=== PATIENT | female | born 1980 | race Hispanic/Latino ===

== ENCOUNTER 2017-07-24 11:01 | Outpatient (CLI) | payer BC ==
[2017-07-24 11:54] LABS: #Lymphocytes 1.4 thou/uL (1.20-3.40); #Monocytes 0.3 thou/uL (0.11-0.59); #Neutrophils 5.9 thou/uL (1.40-6.50); %Basophils 0.4 % (0.0-1.0); %Eosinophils 0.6 % (0.0-10.0); %Lymphocytes 18.1 % (21.0-51.0); %Monocytes 3.9 % (0.0-10.0); Hemoglobin 13.7 g/dL (12.0-16.0); Mean Corpuscular HGB CONC 33.6 g/dL (32.0-36.0); Mean Corpuscular Hemoglobin 32.1 pg (27.0-31.0); Mean Corpuscular Volume 95.7 fl (81.0-99.0); Mean Platelet Volume 8.5 fL (7.4-10.4); Platelet Count 301 thou/uL (130-400); Red Blood Cell (RBC) Count 4.28 mill/uL (4.20-5.40); White Blood Cell (WBC) Count 7.7 thou/uL (4.8-10.8)
[2017-07-24 12:54] LABS: BHCG - Serum Negative (NEGATIVE); Pregs Control Background? CLEAR/WHITE (CLR/WHITE); Pregs Control Bar Appear? YES (CONTROL BAR)
== END 2017-07-24 11:02 | disposition home or self-care (01) ==
LOC: LABBT 11:01
PROVIDERS: ATTEND Surgery
DX: Z01.812 Encounter for preprocedural laboratory examination (principal); K64.4 Residual hemorrhoidal skin tags
CPT/HCPCS: 84703; 85025

== ENCOUNTER 2017-07-28 10:09 | Day surgery (SDC) | payer BC ==
[2017-07-24 11:15] VITALS: BMI 25.6
[2017-07-28] MEDS ORDERED: Scopolamine 1.5 mg/72 hour Patch ONE (11:03)
[2017-07-28] MEDS ORDERED: CEFAZOLIN/Water 2 GM/20 ML SYRINGE ONE (11:03)
[2017-07-28] MEDS ORDERED: Fentanyl 100 MCG/2 ML VIAL ONE (12:18)
[2017-07-28] MEDS ORDERED: Ondansetron HCl/PF 4 MG/2 ML Vial ONE ×3 (12:19→15:58)
[2017-07-28] MEDS ORDERED: Lidocaine 2% 10 ML INJ ONE (12:21)
[2017-07-28] MEDS ORDERED: Bupivacaine/Epinephrine 0.25% 30 ML VIAL ONE (12:21)
[2017-07-28] MEDS ORDERED: Famotidine/PF 20 mg/2ml Vial ONE (12:35)
[2017-07-28] MEDS ORDERED: Bacitracin Zinc Ointment 30 gm TUBE ONE (12:52)
--- NOTE | 2017-07-28 13:09 | OP ---
DATE OF PROCEDURE: 07/28/2017 PREOPERATIVE DIAGNOSIS: Grade 4 hemorrhoidal skin tags. SURGEON: Sherman Ramos M.D. PROCEDURE PERFORMED: Hemorrhoidectomy. INDICATIONS: A 37-year-old female who has this long external hemorrhoidal tag that is causing very m uch difficulty with hygiene, here for excision. FINDINGS: There is about a 3 cm long pedunculated skin tag anterior aspect of the anus with an exter nal hemorrhoidal component. PROCEDURE: After informed consent was obtained, the patient was taken to the operating room and give n general mask anesthesia. She was placed in the lithotomy position. Her perianal region was preppe d and draped in usual fashion. Local anesthesia infiltrated subcutaneously and deep and using electr ocautery it was excised. The skin was closed with interrupted [id number] of 3-0 chromic after hemostasis assured. The patient tolerated the procedure well. Sterile bandage was applied.
[2017-07-28] MEDS ORDERED: PROPOFOL 200 MG/20 ML VIAL ONE (15:58)
[2017-07-28] MEDS ORDERED: Dexamethasone 20 MG/5 ML VIAL ONE (15:58)
[2017-07-28] MEDS ORDERED: Lidocaine 1% PF 5 ML VIAL ONE (15:58)
== END 2017-07-28 15:05 | disposition home or self-care (01) ==
LOC: SDC 10:09
PROVIDERS: ATTEND Surgery
PROC: 06BY0ZC Excision of Hemorrhoidal Plexus, Open Approach (ICD-10-PCS; principal; 2017-07-28)
DX: K64.3 Fourth degree hemorrhoids (principal)
CPT/HCPCS: 88304; J1100; J2001; J2405; J2704; J3010; S0028

== ENCOUNTER 2017-10-25 15:01 | Outpatient (CLI) | payer BC | END 2017-10-25 15:02 | disposition home or self-care (01) | LOC: BICMAMMO 15:01 | PROVIDERS: ATTEND Obstetrics & Gynecology | DX: Z12.31 Encounter for screening mammogram for malignant neoplasm of breast (principal); Z80.3 Family history of malignant neoplasm of breast | CPT/HCPCS: 77063; 77067 ==

== ENCOUNTER 2017-10-31 08:25 | Outpatient (CLI) | payer BC | END 2017-10-31 08:26 | disposition home or self-care (01) | LOC: BICMAMMO 08:25 | PROVIDERS: ATTEND Obstetrics & Gynecology | DX: R92.2 Inconclusive mammogram (principal); Z80.3 Family history of malignant neoplasm of breast | CPT/HCPCS: G0279 ==